=== PATIENT | male | born 1960 | race Caucasian/White ===

== ENCOUNTER 2016-08-26 16:32 | Emergency (ER) | payer MEDICARE ==
[2016-08-26 17:03] VITALS: BMI 29.0
[2016-08-26 17:13] VITALS: RESP 18; TEMP 98.5; O2SAT 98
--- NOTE | 2016-08-26 17:48 | C.PDOC ---
History Of Present Illness 55 y/o male with PMHx of C-spine DJD, chronic neck pain ( since 2010) presents to ED for evaluation of neck pain exacerbation , right> left for the "past few weeks". Patient reports pain is constant, localized, worse with head rotation. Pt also reports, noted some swelling over back of neck. Patient sts, " pain is so bad in neck that spread to my head, developed some headache". Also reports, " sometimes feels pain in my arms with tingling over hands". Pt admits, similar pain in past. Pt was seen by PMD and Ortho in past ' was offered surgery to my neck but I refused". Otherwise, pt denies recent trauma injury, denies dizziness , "worse headache of life", visual changes, vertigo, focal deficits, sob, cp, palpitation, diaphoresis, abd. pain, N/V, denies weakness, sensory or vascular deficits to B/L UEs. Ambulate to ED for evaluation, not in any apparent distress. Time Seen by Provider: 08/26/16 17:36 Chief Complaint (Nursing): Upper Extremity Problem/Injury History Per: Patient History/Exam Limitations: no limitations Onset/Duration Of Symptoms: Days Current Symptoms Are (Timing): Still Present Past Medical History Reviewed: Historical Data, Nursing Documentation, Vital Signs Vital Signs: Last Vital Signs Temp 98.5 F 08/26/16 17:07 Pulse 75 08/26/16 20:30 Resp 18 08/26/16 20:30 BP 124/72 08/26/16 20:30 Pulse Ox 98 08/26/16 20:30 - Medical History PMH: Back Problems, HTN Surgical History: Back Surgery Family History: States: No Known Family Hx - Social History Hx Alcohol Use: No Hx Substance Use: No - Immunization History Hx Tetanus Toxoid Vaccination: No Hx Influenza Vaccination: Yes Hx Pneumococcal Vaccination: No Review Of Systems Except As Marked, All Systems Reviewed And Found Negative. Cardiovascular: Negative for: Chest Pain Respiratory: Negative for: Shortness of Breath Gastrointestinal: Negative for: Nausea, Vomiting, Diarrhea Musculoskeletal: Positive for: Neck Pain Skin: Negative for: Rash Neurological: Positive for: Headache. Negative for: Weakness Physical Exam - Physical Exam Appears: Non-toxic, No Acute Distress Skin: Normal Color, Warm, No Rash, No Ecchymosis Head: Normacephalic Eye(s): bilateral: PERRL Neck: Normal ROM, Trachea Midline, Paracervical Tenderness (diffuse R>L with mild Right posterior swelling secondary to muscle spasm. No skin changes, no palpable step offs. No skin changes.), No Step Off Deformity, Supple Chest: Symmetrical Cardiovascular: Rhythm Regular, No Friction Rub, No Murmur, No JVD Respiratory: No Decreased Breath Sounds, No Stridor, No Wheezing Gastrointestinal/Abdominal: Soft, No Tenderness Extremity: Normal ROM (B/L UEs), No Tenderness, No Pedal Edema Neurological/Psych: Oriented x3, Normal Speech, Normal Motor, Normal Sensation, Normal Reflexes ED Course And Treatment O2 Sat by Pulse Oximetry: 98 (RA) Pulse Ox Interpretation: Normal - CT Scan/US CT - Cervical Spine Other Rad Studies (CT/US): Read By Radiologist, Radiology Report Reviewed CT/US Interpretation: CT cervical spine without IV contrast. Indication: Pain. Comparison: Cervical spine radiographs performed 02/21/14. Technique: Axial computed tomography images were obtained of the cervical spine without the use of intravenous contrast. Coronal and sagittal reformatted images were created and reviewed. This CT exam was performed using 1 or more of the falling dose reduction techniques: Automated exposure control, adjustment of the MAA and/or kV according to patient size, and/or use of iterative reconstruction technique. Radiation dose: Total exam DLP = 565.05 MGy-cm. Findings: Straightening of the normal cervical lordosis may be related to muscle spasm or positioning. There is no evidence of acute fracture or subluxation. Multilevel degenerative changes including small osteophyte formation and intervertebral disc space narrowing most prominent at C5-C6. The prevertebral soft tissues and spinolaminar lines appear intact. The lateral masses are preserved. The dens tip is intact. There is proper alignment of the lateral masses of C1 with the C2 vertebral body. Included portions of the thyroid gland appear unremarkable. Included portions of lung apices appear clear. Poor dentition. Impression: Straightening of the normal cervical lordosis may be related to muscle spasm or positioning. No evidence of acute fracture or subluxation. Multilevel degenerative changes including osteophyte formation and intervertebral disc space narrowing. CT - Head Other Rad Studies (CT/US): Read By Radiologist, Radiology Report Reviewed CT/US Interpretation: PROCEDURE: CT HEAD WITHOUT CONTRAST. HISTORY: pain. COMPARISON: None available. TECHNIQUE: Axial computed tomography images were obtained through the head/brain without intravenous contrast. Radiation dose: Total exam DLP = 819.66 mGy-cm. This CT exam was performed using one or more of the following dose reduction techniques: Automated exposure control, adjustment of the mA and/or kV according to patient size, and/or use of iterative reconstruction technique. FINDINGS: HEMORRHAGE: No intracranial hemorrhage. BRAIN: No mass effect or edema. [place]-white matter differentiation appears intact. Please note that MRI with diffusion imaging is more sensitive in the detection of acute ischemic event. VENTRICLES: No hydrocephalus. CALVARIUM: Unremarkable. PARANASAL SINUSES: Unremarkable as visualized. No significant inflammatory changes. MASTOID AIR CELLS: Unremarkable as visualized. No inflammatory changes. OTHER FINDINGS: None. IMPRESSION: No acute intracranial pathology identified. Progress Note: On re-eavluation, pt is afebrile, hemodynamicaly stable. Non- toxic. AMbulatory in ED with baseline gait. Neuorlogicaly intact. Imaging review. case discussed with ED attending, aware of case. was asked to evaluate patient. Pt has clinical findings c/w diffuse C-spine DJD. Pt advised on course of ds and ref. to F/u with PMD, SPinal Ortho, Neuro in 2-3 days for re-evaluation and further tx. return to Ed at any time if any worsening or new changes. Pt understand and agrees with discharges. Disposition Counseled Patient/Family Regarding: Studies Performed, Diagnosis, Need For Followup, Rx Given - Disposition Referrals: Clinic,Med Surg [Primary Care Provider] - Ely Linda MD [Medical Doctor] - Disposition: HOME/ ROUTINE Disposition Time: 19:03 Condition: STABLE Additional Instructions: Take medication as prescribed for pain Follow up with PMD and Neurology in 2-3 days for re-evaluation and further treatment. Return to ED if any worsening or new changes. 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 - Scribe Statement The provider has reviewed the documentation as recorded by the Scribe Maricsa Coleman All medical record entries made by the Renetta were at my direction and personally dictated by me. I have reviewed the chart and agree that the record accurately reflects my personal performance of the history, physical exam, medical decision making, and the department course for this patient. I have also personally directed, reviewed, and agree with the discharge instructions and disposition.
--- NOTE | 2016-08-26 18:47 | CT ---
PROCEDURE: CT HEAD WITHOUT CONTRAST. HISTORY: pain COMPARISON: None available. TECHNIQUE: Axial computed tomography images were obtained through the head/brain without intravenous contrast. Radiation dose: Total exam DLP = 819.66 mGy-cm. This CT exam was performed using one or more of the following dose reduction techniques: Automated exposure control, adjustment of the mA and/or kV according to patient size, and/or use of iterative reconstruction technique. FINDINGS: HEMORRHAGE: No intracranial hemorrhage. BRAIN: No mass effect or edema. [place]-white matter differentiation appears intact. Please note that MRI with diffusion imaging is more sensitive in the detection of acute ischemic event. VENTRICLES: No hydrocephalus. CALVARIUM: Unremarkable. PARANASAL SINUSES: Unremarkable as visualized. No significant inflammatory changes. MASTOID AIR CELLS: Unremarkable as visualized. No inflammatory changes. OTHER FINDINGS: None. IMPRESSION: No acute intracranial pathology identified.
--- NOTE | 2016-08-26 18:55 | CT ---
CT cervical spine without IV contrast Indication: Pain Comparison: Cervical spine radiographs performed 02/21/14 Technique: Axial computed tomography images were obtained of the cervical spine without the use of intravenous contrast. Coronal and sagittal reformatted images were created and reviewed. This CT exam was performed using 1 or more of the falling dose reduction techniques: Automated exposure control, adjustment of the MAA and/or kV according to patient size, and/or use of iterative reconstruction technique. Radiation dose: Total exam DLP = 565.05 MGy-cm. Findings: Straightening of the normal cervical lordosis may be related to muscle spasm or positioning. There is no evidence of acute fracture or subluxation. Multilevel degenerative changes including small osteophyte formation and intervertebral disc space narrowing most prominent at C5-C6. The prevertebral soft tissues and spinolaminar lines appear intact. The lateral masses are preserved. The dens tip is intact. There is proper alignment of the lateral masses of C1 with the C2 vertebral body. Included portions of the thyroid gland appear unremarkable. Included portions of lung apices appear clear. Poor dentition. Impression: Straightening of the normal cervical lordosis may be related to muscle spasm or positioning. No evidence of acute fracture or subluxation. Multilevel degenerative changes including osteophyte formation and intervertebral disc space narrowing.
[2016-08-26 21:11] VITALS: BP 124/72; PULSE 75
== END 2016-08-26 20:30 | disposition home or self-care (01) ==
LOC: C.ER 16:32 → SUPCPDRO 16:32 → C.ER 20:30
DX: M54.12 Radiculopathy, cervical region (principal)

== ENCOUNTER 2017-02-24 20:06 | Emergency (ER) | payer MEDICARE ==
[2017-02-24 20:06] VITALS: BMI 29.0
[2017-02-24 20:37] VITALS: BP 150/87; PULSE 71; RESP 20; TEMP 98; O2SAT 100
[2017-02-24] MEDS ORDERED: Ofloxacin 0.3% Ophth Soln OS STA (21:12)
--- NOTE | 2017-02-24 21:43 | C.PDOC ---
History Of Present Illness 56 year old male presents to the ED for evaluation of white-yellow discharge and redness to left eye which began 1-2 days ago. Patient reports associated itching. He denies fever, chills, vision change, sick contact. Time Seen by Provider: 02/24/17 20:50 Chief Complaint (Nursing): ENT Problem History Per: Patient History/Exam Limitations: no limitations Onset/Duration Of Symptoms: Days (1-2) Current Symptoms Are (Timing): Still Present Injury To Eye?: No Associated Symptoms: Discharge From Eye. denies: Decreased Vision Additional History Per: Patient Past Medical History Reviewed: Historical Data, Nursing Documentation, Vital Signs Vital Signs: Last Vital Signs Temp 98 F 02/24/17 20:35 Pulse 71 02/24/17 20:35 Resp 20 02/24/17 20:35 BP 150/87 02/24/17 20:35 Pulse Ox 100 02/24/17 21:47 - Medical History PMH: Back Problems, HTN Surgical History: Back Surgery Family History: States: Unknown Family Hx - Social History Hx Alcohol Use: No Hx Substance Use: No - Immunization History Hx Tetanus Toxoid Vaccination: No Hx Influenza Vaccination: Yes Hx Pneumococcal Vaccination: No Review Of Systems Constitutional: Negative for: Fever, Chills Eyes: Positive for: Other (left eye discharge and redness ). Negative for: Vision Change Physical Exam - Physical Exam Appears: Non-toxic, No Acute Distress Skin: Normal Color, Warm, Dry Head: Atraumatic, Normacephalic Eye(s): right: Normal Inspection, left: Other (moderate conjunctival injection with yellow discharge to eye and eyelid ) ED Course And Treatment O2 Sat by Pulse Oximetry: 100 (on RA) Pulse Ox Interpretation: Normal Disposition - Disposition Referrals: Franky Sahu MD [Staff Provider] - Disposition: HOME/ ROUTINE Disposition Time: 21:40 Condition: GOOD Additional Instructions: Follow up with the Eye doctor within 1-2 days. Return if worsened. 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 - Scribe Statement The provider has reviewed the documentation as recorded by the Scribe (Melida Hyde) All medical record entries made by the Scribe were at my direction and personally dictated by me. I have reviewed the chart and agree that the record accurately reflects my personal performance of the history, physical exam, medical decision making, and the department course for this patient. I have also personally directed, reviewed, and agree with the discharge instructions and disposition.
== END 2017-02-24 21:56 | disposition home or self-care (01) ==
LOC: C.ER 20:06
DX: H10.9 Unspecified conjunctivitis (principal)

== ENCOUNTER 2018-05-19 07:55 | Emergency (ER) | payer MEDICARE ==
[2018-05-19 08:03] VITALS: BMI 29.9
[2018-05-19 09:09] LABS: BASO % 0.5 % (0.0-2.0); EOS # 0.1 K/uL (0.0-0.7); EOS % 1.1 % (0.0-4.0); HEMOGLOBIN 14.9 g/dL (12.0-18.0); LYMPH # 1.7 K/uL (1.0-4.3); LYMPH % 16.9 % (20.0-40.0); MEAN CELL VOLUME 92.6 fL (80.0-94.0); MEAN CORPUSCULAR HEMOGLOBIN 31.4 pg (27.0-31.0); MEAN CORPUSCULAR HGB CONC 33.9 g/dL (33.0-37.0); MEAN PLATELET VOLUME 9.6 fL (7.2-11.7); MONO # 0.8 K/uL (0.0-0.8); MONO % 8.1 % (0.0-10.0); NEUT # 7.2 K/uL (1.8-7.0); NEUT % 73.4 % (50.0-75.0); NRBC % 0.1 % (0.0-2.0); RBC 4.75 Mil/uL (4.40-5.90); RED CELL DISTRIBUTION WIDTH 13.1 % (11.5-14.5); WHITE BLOOD COUNT 9.8 K/uL (4.8-10.8)
[2018-05-19 09:19] LABS: SQUAMOUS EPITHIAL < 1 /hpf (0-5); URINE BACTERIA RARE (<OCC); URINE BILIRUBIN NEGATIVE (NEGATIVE); URINE BLOOD NEGATIVE (NEGATIVE); URINE CLARITY Clear (Clear); URINE COLOR Yellow (YELLOW); URINE GLUCOSE (UA) NORMAL (Normal); URINE LEUKOCYTE ESTERASE NEG Leu/uL (Negative); URINE PROTEIN NEGATIVE (NEGATIVE); URINE UROBILINOGEN NORMAL mg/dL (0.2-1.0)
--- NOTE | 2018-05-19 09:19 | C.PDOC ---
History Of Present Illness 57 y/o male.w/PMhx of diabetes and HTN, presents to the ER complaining of constant abdominal pain which has been present since yesterday. Patient states that he has normal PO intake. He reports that he did not take any medications fo r the pain. Patient states he is constipated and had a bowel movement this morning but it was "small and hard round". Patient is also complaining of right shoulder pain since he had a fall approximately 1 month ago when he tripped and fell on his right side. Denies having fever,chills, CP, SOB, nausea,vomiting, and urinary symptoms. Time Seen by Provider: 05/19/18 08:17 Chief Complaint (Nursing): Abdominal Pain History Per: Patient History/Exam Limitations: no limitations Onset/Duration Of Symptoms: Days Current Symptoms Are (Timing): Still Present Severity: Moderate Past Medical History Reviewed: Historical Data, Nursing Documentation, Vital Signs Vital Signs: Last Vital Signs Temp 98.0 F 05/19/18 08:03 Pulse 85 05/19/18 08:03 Resp 17 05/19/18 08:03 BP 129/85 05/19/18 08:03 Pulse Ox 97 05/19/18 08:03 - Medical History PMH: Arthritis, Back Problems, Depression, HTN Surgical History: Back Surgery Family History: States: No Known Family Hx - Social History Hx Alcohol Use: No Hx Substance Use: No - Immunization History Hx Tetanus Toxoid Vaccination: No Hx Influenza Vaccination: Yes (2018) Hx Pneumococcal Vaccination: Yes Review Of Systems Except As Marked, All Systems Reviewed And Found Negative. Constitutional: Negative for: Fever, Chills ENT: Negative for: Nose Discharge Respiratory: Negative for: Shortness of Breath Gastrointestinal: Positive for: Abdominal Pain. Negative for: Nausea, Vomiting, Diarrhea Genitourinary: Negative for: Dysuria, Hematuria Musculoskeletal: Positive for: Shoulder Pain (right shoulder pain) Physical Exam - Physical Exam Appears: Non-toxic, No Acute Distress Skin: Normal Color, Warm, Dry Head: Atraumatic, Normacephalic Eye(s): bilateral: Normal Inspection Nose: Normal Oral Mucosa: Moist Neck: Supple Chest: Symmetrical Cardiovascular: Rhythm Regular Respiratory: Normal Breath Sounds, No Rales, No Rhonchi, No Wheezing Gastrointestinal/Abdominal: Bowel Sounds (normal bowel sounds), Soft, Tenderness (mild tenderness to lower abdomen), No Guarding, No Rebound Back: No CVA Tenderness Extremity: Normal ROM, Tenderness (mild tenderness to right anterior shoulder) Neurological/Psych: Oriented x3, Normal Speech, 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 I explained the results of [id number] showing constipation. Pt re-eval. Pt sleeping, easily arousable, states feeling somewhat better. D enies any abd pain, n/v, or any other complaints at this time. Abd re-examined: Soft, NTTP, benign. Understands and agrees to immediately return to ER if increasing pain, vomiting, fevers, or any other concerning, worsening, new or continued sxs. Otherwise, states will f/u with PCP in 1-2 days. Patient is to return in [place] for re-evaluation if any continued, worsening, new or continued symptoms. Patient states feeling better and would like to go home. Patient is very well appearing and non-toxic. Vital signs are stable. I discussed the results of the work-up, diagnosis and treatment. Written discharge instructions were provided to patient. Additional verbal instructions were given and discussed with patient. We discussed the importance of follow up with PCP/consultants. I also reiterated reasons to immediately return to the ER including: worsening in current symptoms and/or new, continued, or concerning symptoms. Pt understood and agreed. Disposition Counseled Patient/Family Regarding: Studies Performed, Diagnosis, Need For Followup - Disposition Disposition: HOME/ ROUTINE Disposition Time: 12:35 Condition: STABLE Additional Instructions: ABELARDO ARCHIBALD, thank you for letting us take care of you today. Your provider was Sanam Starr MD and you were treated for LOWER ABDOMINAL PAIN. The emergency medical care you received today was directed at your acute symptoms. If you were prescribed any medication, please fill it and take as directed. It may take several days for your symptoms to resolve. Return to the Emergency Department if your symptoms worsen, do not improve, or if you have any other problems. Please contact your doctor in 1-2 days for a follow up appointment. Bring any paperwork you were given at discharge with you along with any medications you are taking to your follow up visit. Our treatment cannot replace ongoing medical care by a primary care provider outside of the emergency department. Thank you for allowing the [facility] team to be part of your care today. If you had an X-Ray or CT scan: A Radiologist will review the ED reading if any change in treatment is needed we will contact you. If you had a blood, urine, or wound culture: It will take several days for the results, if any change in treatment is needed we will contact you. If you had an STI test: It will take 48 hours for the results. Please call after 1 week if you have not heard back. Instructions: Muscle Strain, Constipation, Adult (DC), Acute Abdomen (Belly Pain), Adult (DC), Hyperglycemia, Adult (DC) Forms: [employer] ([place]), General Discharge Instructions - POA Present On Arrival: None - Clinical Impression Clinical Impression: Abdominal pain, Hyperglycemia, Constipation, Right shoulder injury - Scribe Statement The provider has reviewed the documentation as recorded by the Altonibe Wilson Velasquez Provider Attestation: All medical record entries made by the Scribe were at my direction and personally dictated by me. I have reviewed the chart and agree that the record accurately reflects my personal performance of the history, physical exam, medical decision making, and the department course for this patient. I have also personally directed, reviewed, and agree with the discharge instructions and disposition.
[2018-05-19 09:31] LABS: ALB/GLOB RATIO 1.8 (1.0-2.1); ALBUMIN 4.7 g/dL (3.5-5.0); ALT/SGPT 35 U/L (21-72); AST/SGOT 30 U/L (17-59); BLOOD UREA NITROGEN 18 mg/dL (9-20); CALCIUM 9.2 mg/dl (8.6-10.4); GFR NON-AFRICAN AMERICAN > 60; LIPASE 160 U/L (23-300)
[2018-05-19 11:38] VITALS: RESP 20
[2018-05-19 12:38] VITALS: BP 123/79; PULSE 80; TEMP 98.2
[2018-05-19 12:40] VITALS: O2SAT 97
--- NOTE | 2018-05-19 13:15 | RAD ---
Date of service: 05/19/2018 HISTORY: abd pain COMPARISON: None available. FINDINGS: BOWEL: Moderate right stool retention present. No obstruction. No free air. BONES: Minimal lumbar spondylosis. Bilateral hip arthrosis. OTHER FINDINGS: Bilateral hemipelvic phleboliths. Probable ischial tuberosity hamstring tendinous calcifications and/or old bilat osseous avulsion injuries here. IMPRESSION: Moderate right stool retention. No mechanical obstruction seen.
--- NOTE | 2018-05-19 13:21 | RAD ---
Date of service: 05/19/2018 PROCEDURE: Radiographs of the Right Shoulder HISTORY: injury COMPARISON: No prior. FINDINGS: BONES: No fracture seen. Sub cortical sub chondral cystic changes of the humeral head and tuberosities and lateral clavicle and lateral acromion noted. JOINTS: Trace glenohumeral and mild moderate acromioclavicular arthrosis. SOFT TISSUES: Normal. OTHER FINDINGS: None. IMPRESSION: No fracture or dislocation. Cystic arthrosis right shoulder as above.
== END 2018-05-19 12:50 | disposition home or self-care (01) ==
LOC: C.ER 07:55
DX: R10.9 Unspecified abdominal pain (principal); K59.00 Constipation, unspecified; E11.65 Type 2 diabetes mellitus with hyperglycemia; S49.91XA Unspecified injury of right shoulder and upper arm, initial encounter; W01.0XXA Fall on same level from slipping, tripping and stumbling without subsequent striking against object, initial encounter; I10 Essential (primary) hypertension

== ENCOUNTER 2018-06-14 09:23 | Emergency (ER) | payer MEDICARE ==
[2018-06-14 09:26] VITALS: BMI 29.8
[2018-06-14 09:30] VITALS: TEMP 98.7
--- NOTE | 2018-06-14 09:56 | C.PDOC ---
History Of Present Illness Patient is a 57 year old male who is c/o left lower back pain on and off x 1 month. The pain started again yesterday morning out of the blue (was not doing heavy lifting or anything). Any movements at his lower back worsens the pain. Sitting for a prolonged time makes it worse also. Pt has not seen a physician this month for this pain. Pt did take Celebrex about 90 mins ago for his symptoms--no relief as of yet. Pt had similar pain 3-4 yrs ago and said that he was told that he had a kidney problem. Currently his pain is an "8" on a 1-10 scale. No dysuria. No fever. PMD: Dr. Goldstein Time Seen by Provider: 06/14/18 09:32 Chief Complaint (Nursing): Back Pain History Per: Patient History/Exam Limitations: no limitations Onset/Duration Of Symptoms: Days Current Symptoms Are (Timing): Still Present Pain Scale Rating Of: 8 Past Medical History Reviewed: Historical Data, Nursing Documentation, Vital Signs Vital Signs: Last Vital Signs Temp 98.7 F 06/14/18 09:26 Pulse 78 06/14/18 09:26 Resp 18 06/14/18 09:26 BP 134/75 06/14/18 09:26 Pulse Ox 96 06/14/18 09:26 - Medical History PMH: Arthritis, Back Problems, Depression, HTN Surgical History: Back Surgery Family History: States: Diabetes - Social History Hx Tobacco Use: No Hx Alcohol Use: No Hx Substance Use: No - Immunization History Hx Tetanus Toxoid Vaccination: No Hx Influenza Vaccination: Yes (2017) Hx Pneumococcal Vaccination: Yes Review Of Systems Except As Marked, All Systems Reviewed And Found Negative. Constitutional: Negative for: Fever Cardiovascular: Negative for: Chest Pain Respiratory: Negative for: Shortness of Breath Gastrointestinal: Negative for: Vomiting, Abdominal Pain Genitourinary: Negative for: Dysuria Musculoskeletal: Positive for: Back Pain Physical Exam - Physical Exam Appears: Well, Non-toxic, No Acute Distress Skin: Normal Color, Warm, Dry Head: Atraumatic Eye(s): bilateral: Normal Inspection Ear(s): Bilateral: Normal Nose: Normal Oral Mucosa: Moist Tongue: Normal Appearing Lips: Normal Appearing Gingiva: Normal Appearing Throat: Normal Neck: Normal Lymphatic: Deferred Chest: Symmetrical Cardiovascular: Rhythm Regular, No Murmur Respiratory: Normal Breath Sounds, No Rales, No Rhonchi, No Wheezing Gastrointestinal/Abdominal: Normal Exam Rectal: Deferred Back: CVA Tenderness (left), Other (pain with flexion/extension of lower back) Extremity: Normal ROM Extremity: Bilateral: Atraumatic Neurological/Psych: Oriented x3, Normal Motor, Normal Sensation, Other (walks w/ cane (for yrs now); nonfocal exam) ED Course And Treatment O2 Sat by Pulse Oximetry: 96 Medical Decision Making Medical Decision Making: Initial Impression: Low back pain Initial Plan: Will get UA (as hx of kidney issues) and give pain medication. Pt already took Celebrex at home Progress note: 12:36 PM - Patient feels better. Patient states that he has a follow up appointment this Friday for a back pain specialist. I explained to him that it is very important to follow up with this doctor on this Friday. Disposition - Disposition Disposition: HOME/ ROUTINE Disposition Time: 12:11 Condition: IMPROVED Additional Instructions: Mr. Piper, thank you for letting us take care of you today. Return to the ER if your symptoms worsen, or if any problems. Take the medication listed below as prescribed. You have an appointment this Friday with the doctor for your back problem. Please make sure that you go to this appointment. / Prescriptions: Acetaminophen [Tylenol 325mg tab] 3 tab PO Q6 PRN #30 tab PRN Reason: Pain, Moderate (4-7) Ibuprofen [Motrin Tab] 1 tab PO TID PRN #30 tab PRN Reason: Pain, Moderate (4-7) Lidocaine 5% [Lidoderm] 1 patch TD DAILY #10 patch Instructions: Low Back Pain in Adults Print Language: DANISH - POA Present On Arrival: None - Clinical Impression Clinical Impression: Low back pain
[2018-06-14] MEDS ORDERED: Lidocaine 5% Patch TD STA (10:02)
[2018-06-14] MEDS ORDERED: Lidocaine 5% Patch TD ONE (10:08)
[2018-06-14 10:19] LABS: SQUAMOUS EPITHIAL < 1 /hpf (0-5); URINE BILIRUBIN NEGATIVE (NEGATIVE); URINE BLOOD NEGATIVE (NEGATIVE); URINE CLARITY Clear (Clear); URINE COLOR Yellow (YELLOW); URINE GLUCOSE (UA) 1+ mg/dL (Normal); URINE LEUKOCYTE ESTERASE NEG Leu/uL (Negative); URINE PROTEIN NEGATIVE (NEGATIVE); URINE UROBILINOGEN NORMAL mg/dL (0.2-1.0)
[2018-06-14] MEDS ORDERED: oxyCODONE 5 mg Immediate Release Tab PO STA (11:30)
[2018-06-14] MEDS ORDERED: oxyCODONE 5 mg Immediate Release Tab ONE (11:38)
[2018-06-14 12:25] VITALS: BP 110/67; PULSE 73; RESP 16
[2018-06-14 12:40] VITALS: O2SAT 96
--- NOTE | 2018-06-14 13:23 | RAD ---
Date of service: 06/14/2018 PROCEDURE: Radiographs of the Lumbar Spine. HISTORY: low back pain not relieved w/ medication COMPARISON: No prior. TECHNIQUE: 5 views obtained. FINDINGS: BONES: Normal alignment. No listhesis. No fracture. DISC SPACES: Narrowing of the intervertebral disc is space and degenerative changes noted at L5-S1. OTHER FINDINGS: None. IMPRESSION: Narrowing of the intervertebral disc is space and degenerative changes at L5-S1 noted.
== END 2018-06-14 12:53 | disposition home or self-care (01) ==
LOC: C.ER 09:23
DX: M54.5 Low back pain (principal)